=== PATIENT | male | born 1960 | race Caucasian/White ===

== ENCOUNTER → 2017-01-30 | Outpatient (CLI) | payer OTHER ==
[~2017-01-30] MED LIST: ISOVUE-370 76% 100ML VIAL (Q9967) As Ordered ONE
--- NOTE | 2017-01-30 15:26 | REP ---
CT ANGIOGRAM CHEST: TECHNIQUE: Axial contrast enhanced images from the thoracic inlet to the upper abdomen using 100 mL Isovue 370 intravenous contrast material with multiplanar reformations. I see no evidence of acute infiltrate. There is no CT evidence of a pulmonary embolism. There is no adenopathy. There is no evidence of aneurysm of the thoracic aorta and no evidence of dissection. No pleural or pericardial effusion is seen. The heart is normal in size. There is diffuse fatty infiltration of the liver. No other upper abdominal abnormality is seen. IMPRESSION: No CT evidence of pulmonary embolism. Signed by Jay Burroughs MD 01/31/2017 04:04 P
== END ==
LOC: M RAD 13:10
PROVIDERS: ATTEND Nurse Practitioner Family
DX: R07.9 Chest pain, unspecified (principal)

== ENCOUNTER → 2017-07-20 | Outpatient (REF) | payer OTHER | LOC: M LAB REF 11:38 | PROVIDERS: ATTEND Dermatology | DX: D49.2 Neoplasm of unspecified behavior of bone, soft tissue, and skin (principal) ==

== ENCOUNTER → 2020-06-18 | Outpatient (REF) | payer OTHER | LOC: M SFHCCLAY 16:21 | PROVIDERS: ATTEND Physician Assistant | DX: R09.81 Nasal congestion (principal) ==